=== PATIENT | female | born 1975 | race Caucasian/White ===

== ENCOUNTER 2024-05-12 09:01 | Outpatient (CLI) | payer OTHER, SELFPAY ==
[2024-05-12 09:31] VITALS: PULSE 94; RESP 22; O2SAT 94
[2024-05-12] MEDS: albuterol 2.5 mg/3 mL Neb INHALATION (09:31)
[2024-05-12 09:36] VITALS: PULSE 101
== END 2024-05-12 09:02 | disposition home or self-care (01) ==
LOC: RT 09:02
PROVIDERS: Visit Provider Dermatology Procedural Dermatology
DX: J44.9 Chronic obstructive pulmonary disease, unspecified (principal)
CPT/HCPCS: 94060; 94618; J7613